=== PATIENT | male | born 1975 | race Caucasian/White ===

== ENCOUNTER 2019-02-03 09:02 | Emergency (ER) | payer OTHER ==
[~2019-02-03] VITALS: Ht 165.1 cm; Wt 80.6 kg
[~2019-02-03 09:02] MED LIST: BACI28.34 TOP; NAPR-985 PO
[2019-02-03 09:06] VITALS: BP 148/91; PULSE 101; RESP 16; Ht 165.1 cm; Wt 80.6 kg
[2019-02-03] MEDS ORDERED: LIDOCAINE 1% (MPF) 5 ML VIAL INJ ONE (09:30)
--- NOTE | 2019-02-03 10:45 | ERD ---
ER Documentation Chief Complaint Chief Complaint LEFT INGROWN TOE NAIL HPI 43-year-old male presenting with left ingrown toenail. Patient states his pain has been consistent for the last year. He has no fevers. He has had mild possibly bleeding from the site. Denies use of medications. Denies medical problems. NKDA. Surgical history denies. Up-to-date on vaccinations ROS All systems reviewed and are negative except as per history of present illness. Medications Home Meds Active Scripts Naproxen* (Naprosyn*) 500 Mg Tablet, 500 MG PO BID PRN for PAIN AND/OR INFLAMMATION, #30 TAB Prov:FUAD SEYMOUR PA-C 02/03/19 Bacitracin* (Bacitracin Zinc Oint*) 28.35 Gm Oint, 1 APPLIC TOP BID, #1 TUB APPLI TO Prov:FUAD SEYMOUR PA-C 02/03/19 Allergies Allergies: Coded Allergies: No Known Allergy (Unverified , 02/03/19) PMhx/Soc Medical and Surgical Hx: pt denies Medical Hx, pt denies Surgical Hx Hx Alcohol Use: No Hx Substance Use: No Hx Tobacco Use: No Smoking Status: Never smoker FmHx Family History: No diabetes, No coronary disease, No other Physical Exam Vitals Vital Signs Date Temp Pulse Resp B/P (MAP) Pulse Ox O2 O2 Flow FiO2 Time Delivery Rate 02/03/19 97.6 101 16 148/91 98 09:06 (110) Physical Exam GENERAL: The patient is well-appearing, well-nourished, in no acute distress HEENT: Atraumatic. Conjunctivae are pink. Pupils equal, round, and reactive to light. There is no scleral icterus. Tympanic membranes clear bilaterally. HEART: Regular rate and rhythm. No murmurs, clicks, rubs or gallops. EXTREMITIES: Equal pulses bilaterally. There is no peripheral clubbing, cyanosis or edema. No focal swelling or erythema. Full range of motion. NEUROLOGIC: Alert and oriented. Cranial nerves II through XII intact. Motor s trength in all 4 extremities with 5 out of 5 strength. Sensation grossly intact. SKIN: Swelling noted to the left lateral great toenail. Dried blood noted around the region with some purulence. Mild erythema. Results 24 hrs Current Medications Medications Dose Sig/Estefanía Start Time Status Last (Trade) Ordered Route PRN Stop Time Admin Dose Reason Admin Lidocaine 5 ml ONCE ONCE 02/03/19 DC (Xylocaine INJ 09:30 1% (Mpf)) 02/03/19 09:31 Procedures/MDM ER course: Plain lidocaine used as digital block toe block. Lateral portion of the nail removed without complication. Patient tolerated procedure well. Bandage applied. MDM: 43-year-old male presenting with ingrown toenail. Patient's toenail was removed without complication. I have low suspicion for osteomyelitis or abscess. She is discharged with strict ER precautions and told to follow-up with primary care within 1 to 2 days for close evaluation. Patient is r ecommended to soak foot in warm water at home and apply bacitracin ointment. All questions answered at discharge Departure Diagnosis: Primary Impression: Ingrown nail Condition: Stable Patient Instructions: Ingrown Toenail, Excised Referrals: [facility] YOU HAVE RECEIVED A MEDICAL SCREENING EXAM AND THE RESULTS INDICATE THAT YOU DO NOT HAVE A CONDITION THAT REQUIRES URGENT TREATMENT IN THE EMERGENCY DEPARTMENT. FURTHER EVALUATION AND TREATMENT OF YOUR CONDITION CAN WAIT UNTIL YOU ARE SEEN IN YOUR DOCTORS OFFICE WITHIN THE NEXT 1-2 DAYS. IT IS YOUR RESPONSIBILITY TO MAKE AN APPOINTMENT FOR [facility] CARE. IF YOU HAVE A PRIMARY DOCTOR --you should call your primary doctor and schedule an appointment IF YOU DO NOT HAVE A PRIMARY DOCTOR YOU CAN CALL OUR PHYSICIAN REFERRAL HOTLINE AT IF YOU CAN NOT AFFORD TO SEE A PHYSICIAN YOU CAN CHOSE FROM THE FOLLOWING [facility] [id number] [facility]. [facility] [address] [facility] [facility] [address] [facility]. [facility] [address] [facility]. [facility] [address] [facility]. [facility]. [address] Additional Instructions: FOLLOW UP WITH YOUR PRIMARY CARE PHYSICIAN TOMORROW.Return to this facility if you are not improving as expected. FUAD SEYMOUR PA-C Feb 03, 2019 10:45
== END 2019-02-03 10:59 | disposition home or self-care (01) ==
LOC: FTE 09:02
DX: L60.0 Ingrowing nail (principal)
CPT/HCPCS: 11765; Z7502; Z7610